=== PATIENT | female | born 1950 | race Caucasian/White ===

== ENCOUNTER 2019-05-03 16:22 | Emergency (ER) | payer MEDICARE, OTHER ==
--- NOTE | 2019-05-03 16:55 | EDM.PDOC ---
ED HPI GENERAL MEDICAL PROBLEM - General Chief Complaint: Laceration Stated Complaint: CUT ON LEG Time Seen by Provider: 05/03/19 16:54 Source of Information: Reports: Patient, Family (), Old Records, RN, RN Notes Reviewed History Limitations: Reports: No Limitations - History of Present Illness INITIAL COMMENTS - FREE TEXT/NARRATIVE: Patient presents to ER via POV stating she was pushing a gate shut and a horse pushed against it causing her left leg to go under the gate causing a laceration. Patient states that this happened around 1613HRS. She is unsure when her last tetanus shot was, but believes it to be greater than 10 years ago. No other injuries. Onset: Today Duration: Constant Location: Reports: Lower Extremity, Left Quality: Reports: Ache Severity: Severe Improves with: Reports: Immobilization Worsens with: Reports: Movement Associated Symptoms: Reports: No Other Symptoms Left Lower Leg Pain Score (Numeric/FACES): 6 - Related Data Allergies Allergy/AdvReac Type Severity Reaction Status Date / Time alatrofloxacin mesylate Allergy Unknown STOMACH Verified 05/03/19 16:31 [From Trovan] amoxicillin trihydrate Allergy Unknown STOMACH Verified 05/03/19 16:31 [From Augmentin] cefixime [From Suprax] Allergy Unknown UNKNOWN Verified 05/03/19 16:31 cephalexin Allergy Unknown STOMACH Verified 05/03/19 16:31 codeine Allergy Unknown UNKNOWN Verified 05/03/19 16:31 potassium clavulanate Allergy Unknown STOMACH Verified 05/03/19 16:31 [From Augmentin] Sulfa (Sulfonamide Allergy Unknown Rash Verified 05/03/19 16:31 Antibiotics) sulfamethoxazole Allergy Unknown STOMACH Verified 05/03/19 16:31 [From Bactrim] trimethoprim [From Bactrim] Allergy Unknown STOMACH Verified 05/03/19 16:31 trovafloxacin mesylate Allergy Unknown STOMACH Verified 05/03/19 16:31 [From Trovan] EES Allergy Unknown STOMACH Uncoded 06/08/14 12:02 Past Medical History - Past Health History Medical/Surgical History: Denies Medical/Surgical History Social & Family History - Tobacco Use Smoking Status *Q: Never Smoker Second Hand Smoke Exposure: No - Recreational Drug Use Recreational Drug Use: No - Living Situation & Occupation Living situation: Reports: , with Spouse Occupation: Retired ED ROS GENERAL - Review of Systems Review Of Systems: ROS reveals no pertinent complaints other than HPI. ED EXAM, SKIN/RASH Exam: See Below Exam Limited By: No Limitations General Appearance: Alert, WD/WN, No Apparent Distress, Anxious Eye Exam: Bilateral Eye: Normal Inspection Nose: Normal Inspection Throat/Mouth: Normal Inspection Head: Atraumatic, Normocephalic Neck: Normal Inspection Respiratory/Chest: No Respiratory Distress, Lungs Clear Cardiovascular: Normal Peripheral Pulses, Regular Rate, Rhythm GI/Abdominal: Normal Bowel Sounds, Soft, Non-Tender Back Exam: Normal Inspection, Full Range of Motion Extremities: No Pedal Edema, Normal Capillary Refill, Other (left lower leg with a large gaping laceration irregular, curved & angulated measureing 21cm and to depth of muscle and bone, small amt. of visible FB, no active bleeding.) . No: Joint Swelling Neurological: Alert, Oriented, Normal Cognition, No Motor/Sensory Deficits Psychiatric: Anxious Skin: Warm, Dry ED SKIN PROCEDURES - Laceration/Wound Repair Left Lower Leg Appearance: Subcutaneous, Muscle, Irregular, Mildly Contaminated Distal NVT: Neuro & Vascular Intact, No Tendon Injury Anesthetic Type: Local Local Anesthesia - Lidocaine (Xylocaine): 1% Plain (30cc) Local Anesthesia - Bupivicaine (Marcaine): 0.25% Plain (20cc) Skin Prep: Chlorhexidine (Hibiciens), Saline, Sterile Drape Saline Irrigation (cc's): 2,000 Exploration/Debridement/Repair: Wound Explored, In a Bloodless Field, Explored to Base, Extensive Debridement, Moderately Undermined, Foreign Material Removed , Wound Margins Revised Closed with: Sutures Lac/Wound length In cm: 21 Suture Size: 4-0 # of Sutures: 33 Suture Type: Nylon, Interrupted, Running, Mattress Suture Size: 3-0 # of Sutures: 22 Repaired with: Vicryl Suture Size: 3-0 # of Sutures: 8 Repaired with: Vicryl Drain Placement: No Sterile Dressing Applied: Nurse Tetanus Status Addressed: Yes Complications: No Course - Vital Signs Last Recorded V/S: Last Vital Signs Temp 97.6 F 05/03/19 16:26 Pulse 75 05/03/19 16:26 Resp 18 05/03/19 16:26 BP 170/75 H 05/03/19 16:26 Pulse Ox 97 05/03/19 16:26 - Orders/Labs/Meds Orders: Active Orders 24 hr Category Date Time Status Peripheral IV Care [RC] . DIRECTED Care 05/03/19 17:00 Active Vaccines to be Administered [RC] PER UNIT ROUTINE Care 05/03/19 17:13 Active Peripheral IV Insertion Adult [OM.PC] Stat Oth 05/03/19 16:59 Ordered Meds: Medications Discontinued Medications Generic Name Dose Route Start Last Admin Trade Name Pj PRN Reason Stop Dose Admin Bacitracin 1 dose 05/03/19 18:52 05/03/19 18:57 Bacitracin Oint 1 Gm TOP 05/03/19 18:53 1 dose ONETIME ONE Administration Bupivacaine HCl 30 ml 05/03/19 17:03 05/03/19 17:51 Marcaine 0.5% INFILT 05/03/19 17:04 20 ml ONETIME ONE Administration Diphtheria/Tetanus/Acell Pertussis 0.5 ml 05/03/19 17:12 05/03/19 18:52 Adacel IM 05/03/19 17:13 0.5 ml .ONCE ONE Administration Hydromorphone HCl 1 mg 05/03/19 17:00 05/03/19 17:10 Dilaudid IVPUSH 05/03/19 17:01 1 mg ONETIME ONE Administration Hydromorphone HCl Confirm 05/03/19 17:30 05/03/19 17:33 Dilaudid Administered 05/03/19 17:31 1 mg Dose Administration 1 mg .ROUTE .STK-MED ONE Hydromorphone HCl 1 mg 05/03/19 17:29 05/03/19 18:25 Dilaudid IVPUSH 05/03/19 17:30 Not Given ONETIME ONE Cefazolin Sodium/Dextrose 2 gm 50 mls @ 100 mls/hr 05/03/19 17:02 05/03/19 17 :46 / Premix IV 05/03/19 17:31 100 mls/hr ONETIME ONE Administration Lidocaine HCl 30 ml 05/03/19 17:02 05/03/19 17:50 Xylocaine-Mpf 1% INJECT 05/03/19 17:03 30 ml ONETIME ONE Administration Ondansetron HCl 4 mg 05/03/19 16:59 05/03/19 18:42 Zofran IV 05/03/19 17:00 4 mg ONETIME ONE Administration Ondansetron HCl Confirm 05/03/19 18:40 Zofran Administered 05/03/19 18:41 Dose 4 mg .ROUTE .STK-MED ONE Sodium Chloride 10 ml 05/03/19 17:00 05/03/19 17:53 Saline Flush FLUSH 10 ml ASDIRECTED PRN Administration Keep Vein Open - Radiology Interpretation Free Text/Narrative:: [facility] [place] [facility] Final Radiology Report Call: [phone] assistance Online chat: [email or web address] Name: PRABHA GUILLORY Age: 68Years F Date: 05/03/2019 SSN: -- : [id number] Study: XR TIBIA & FIBULA LEFT Requesting Physician: ONEIL DEL VALLE Images: 2 Addl Studies: Provided Clinical History: Contrast: Contrast Medium: Contrast Amount: Contrast Method: CONFIDENTIALITY STATEMENT This report is intended only for use by the referring physician, and only in accordance with law. If you received this in error, call [phone]. Page 1 of 1 EXAM: XR Left Tibia and Fibula EXAM DATE/TIME: 05/03/2019 5:06 PM CLINICAL HISTORY: 68 years old, female; Other: Large laceration, smashed by gate by a horse TECHNIQUE: Imaging protocol: XR Left tibia and fibula. Views: 2 views. COMPARISON: No relevant prior studies available. FINDINGS: Bones/joints: The alignment of the joints is anatomic and the joint spaces are maintained. There is no evidence of acute fracture. There are no lytic or blastic skeletal lesions present. Soft tissues: No soft tissue swelling is identified. IMPRESSION: No acute abnormality. Thank you for allowing us to participate in the care of your patient. Dictated and Authenticated by: Darin Awad MD 05/03/2019 5:22 PM Central Time ([place] & [place]) Departure - Departure Time of Disposition: 18:57 Disposition: Home, Self-Care 01 Condition: Good Clinical Impression: Laceration of left lower leg Qualifiers: Encounter type: initial encounter Qualified Code(s): S81.812A - Laceration without foreign body, left lower leg, initial encounter - Discharge Information *PRESCRIPTION DRUG MONITORING PROGRAM REVIEWED*: No *COPY OF PRESCRIPTION DRUG MONITORING REPORT IN PATIENT ERIC: No Instructions: Laceration Care, Adult Forms: ED Department Discharge Additional Instructions: Rx: Clindamycin 300mg (antibiotic) Rx: Zofran 4mg (nausea) Rest, ice pack, and elevate left leg. Use a walker or cane. Minimize walking and movement of left ankle and knee. Follow up in clinic in 12 to 14 days for suture removal. Return to the ER immediately if any signs of infection develop. - My Orders Last 24 Hours: My Active Orders 05/03/19 16:59 Peripheral IV Insertion Adult [OM.PC] Stat 05/03/19 17:00 Peripheral IV Care [RC] . DIRECTED 05/03/19 17:13 Vaccines to be Administered [RC] PER UNIT ROUTINE - Assessment/Plan Last 24 Hours: My Active Orders 05/03/19 16:59 Peripheral IV Insertion Adult [OM.PC] Stat 05/03/19 17:00 Peripheral IV Care [RC] . DIRECTED 05/03/19 17:13 Vaccines to be Administered [RC] PER UNIT ROUTINE
[2019-05-03] MEDS ORDERED: Sodium Chloride 0.9% 10 ML Syringe FLUSH PRN (17:00)
[2019-05-03] MEDS ORDERED: HYDROmorphone 1 MG/ML Syringe IVPUSH ONE ×2 (17:00→17:29)
[2019-05-03] MEDS ORDERED: ceFAZolin 2 GM in Premix Bag 1 BAG IV ONE (17:02)
[2019-05-03] MEDS ORDERED: Lidocaine 1% 30 ML SDV INJECT ONE (17:02)
[2019-05-03] MEDS ORDERED: Bupivacaine 0.5% 30 ML SDV INFILT ONE (17:03)
[2019-05-03] MEDS: Ondansetron 4 MG/2 ML SDV IV ONE ×2 (17:07→18:42)
[2019-05-03] MEDS ORDERED: Diphtheria,Pertussis(Acell),Tetanus Vaccine 0.5 ML SDV IM ONE (17:12)
[2019-05-03] MEDS ORDERED: HYDROmorphone 1 MG/ML Syringe ONE (17:30)
[2019-05-03] MEDS ORDERED: Ondansetron 4 MG/2 ML SDV ONE (18:40)
[2019-05-03] MEDS ORDERED: Bacitracin Oint 1 GM U/D Packet TOP ONE (18:52)
== END 2019-05-03 19:20 | disposition home or self-care (01) ==
LOC: DL.ED 16:22
DX: S81.822A Laceration with foreign body, left lower leg, initial encounter (principal); Z23 Encounter for immunization; Z88.2 Allergy status to sulfonamides; Z88.1 Allergy status to other antibiotic agents; Z88.5 Allergy status to narcotic agent; Z88.8 Allergy status to other drugs, medicaments and biological substances; Z91.09 Other allergy status, other than to drugs and biological substances; W22.8XXA Striking against or struck by other objects, initial encounter
CPT/HCPCS: 12036; 73590; 90471; 90715; 96365; 96375; 99283; J0690; J1170; J2001; J2405; J3490; 12006; 12018

== ENCOUNTER 2022-06-03 06:17 | Emergency (ER) | payer MEDICARE, OTHER | END 2022-06-03 08:18 | disposition home or self-care (01) | LOC: DL.ED 06:17 | DX: I10 Essential (primary) hypertension (principal) | CPT/HCPCS: 99283 ==